=== PATIENT | female | born 1990 | race Caucasian/White ===

== ENCOUNTER 2021-10-11 10:07 | Inpatient (IN) | payer OTHER ==
[2021-10-11] MEDS ORDERED: Nalbuphine 10 MG/1 ML Vial IVPUSH PRN (11:14)
[2021-10-11] MEDS ORDERED: Water For Irrigation,Sterile 1,000 ML Container IRR PRN (11:14)
[2021-10-11] MEDS ORDERED: Sodium Chloride 0.9% 2.5 ML Syringe FLUSH PRN (11:14)
[2021-10-11] MEDS ORDERED: Butorphanol 1 MG/ML SDV IVPUSH PRN (11:14)
[2021-10-11] MEDS ORDERED: Carboprost Tromethamine 250 MCG/1 ML Amp IM PRN (11:14)
[2021-10-11] MEDS ORDERED: Tranexamic Acid 1,000 MG in Sodium Chloride 0.9% 100 ML IV PRN (11:14)
[2021-10-11] MEDS ORDERED: Misoprostol 200 MCG Tab PO PRN (11:14)
[2021-10-11] MEDS ORDERED: Methylergonovine 0.2 MG/1 ML Amp IM PRN (11:14)
[2021-10-11] MEDS ORDERED: Sodium Chloride 0.9% 10 ML Syringe FLUSH PRN (11:14)
[2021-10-11] MEDS ORDERED: Sodium Chloride 0.9% 20 ML SDV IV PRN (11:14)
[2021-10-11] MEDS ORDERED: Lidocaine 1% 50 ML MDV INJECT PRN (11:14)
[2021-10-11] MEDS ORDERED: Ondansetron 4 MG/2 ML SDV IVPUSH PRN (11:14)
[2021-10-11] MEDS ORDERED: Oxytocin/0.9 % Sodium Chloride 30 UNIT/500 ML BAG IV SCH ×2 (11:15→11:30)
[2021-10-11] MEDS ORDERED: Misoprostol 25 MCG (1/4 of 100 MCG) Tab VAG PRN (11:16)
[2021-10-11] MEDS ORDERED: Terbutaline 1 MG/ML SDV SUBCUT PRN (11:16)
[2021-10-11] MEDS: Lactated Ringers 1,000 ML IV SCH ×4 (12:00→22:05)
[2021-10-11] MEDS: Misoprostol 25 MCG (1/4 of 100 MCG) Tab VAG PRN ×2 (12:11→17:01)
--- NOTE | 2021-10-11 15:39 | PCM.PREANE ---
Preanesthetic Assessment - Procedure Proposed Procedure: Labor Epidural - Anesthesia/Transfusion/Family Hx Anesthesia History: Prior Anesthesia Without Reaction Family History of Anesthesia Reaction: No Transfusion History: No Prior Transfusion(s) - Review of Systems General: No Symptoms Pulmonary: No Symptoms, Other (Former Smoker. + Covid 19 diagnosis 10/08/21 with no symptoms) Cardiovascular: No Symptoms Gastrointestinal: Other (Morbid Obesity) Neurological: No Symptoms Other: Reports: Anxiety - Physical Assessment NPO Status Date: 10/11/21 NPO Status Time: 15:00 (Not NPO) Height: 1.55 m Weight: 124.194 kg ASA Class: 2 Mental Status: Alert & Oriented x3 Airway Class: Mallampati = 2 Dentition: Reports: Normal Dentition Thyro-Mental Finger Breadths: 3 Mouth Opening Finger Breadths: 3 ROM/Head Extension: Full Lungs: Clear to Auscultation, Normal Respiratory Effort Cardiovascular: Regular Rate, Regular Rhythm - Lab Values: Laboratory Last Values WBC 6.98 K/uL (4.0-11.0) 10/11/21 11:00 RBC 4.78 M/uL (4.30-5.90) 10/11/21 11:00 Hgb 14.6 g/dL (12.0-16.0) 10/11/21 11:00 Hct 42.2 % (36.0-46.0) 10/11/21 11:00 MCV 88.3 fL (80.0-98.0) 10/11/21 11:00 MCH 30.5 pg (27.0-32.0) 10/11/21 11:00 MCHC 34.6 g/dL (31.0-37.0) 10/11/21 11:00 RDW Std Deviation 46.5 fl (28.0-62.0) 10/11/21 11:00 RDW Coeff of Evelyn 14 % (11.0-15.0) 10/11/21 11:00 Plt Count 130 K/uL (150-400) L 10/11/21 11:00 MPV 11.00 fL (7.40-12.00) 10/11/21 11:00 Nucleated RBC % 0.0 /100WBC 10/11/21 11:00 Nucleated RBCs # 0 K/uL 10/11/21 11:00 Urine Color YELLOW 10/11/21 10:00 Urine Appearance CLEAR 10/11/21 10:00 Urine pH 6.5 (5.0-8.0) 10/11/21 10:00 Ur Specific Mode 1.020 (1.001-1.035) 10/11/21 10:00 Urine Protein TRACE mg/dL (NEGATIVE) H 10/11/21 10:00 Urine Glucose (UA) NEGATIVE mg/dL (NEGATIVE) 10/11/21 10:00 Urine Ketones NEGATIVE mg/dL (NEGATIVE) 10/11/21 10:00 Urine Occult Blood NEGATIVE (NEGATIVE) 10/11/21 10:00 Urine Nitrite NEGATIVE (NEGATIVE) 10/11/21 10:00 Urine Bilirubin NEGATIVE (NEGATIVE) 10/11/21 10:00 Urine Urobilinogen 1.0 EU/dL (<2.0) 10/11/21 10:00 Ur Leukocyte Esterase NEGATIVE (NEGATIVE) 10/11/21 10:00 Membrane Rupture POSITIVE 10/11/21 10:00 Blood Type A POSITIVE 10/11/21 11:00 Antibody Screen NEGATIVE 10/11/21 11:00 - Allergies Allergies/Adverse Reactions: Allergies Allergy/AdvReac Type Severity Reaction Status Date / Time Latex, Natural Rubber Allergy Hives Verified 10/11/21 10:15 - Blood Blood Available: Yes Product(s) Available: PRBC (Type and screen) - Anesthesia Plan Pre-Op Medication Ordered: None - Acknowledgements Anesthesia Type Planned: Epidural Pt an Appropriate Candidate for the Planned Anesthesia: Yes Alternatives and Risks of Anesthesia Discussed w Pt/Guardian: Yes Pt/Guardian Understands and Agrees with Anesthesia Plan: Yes PreAnesthesia Questionnaire [employer] History: Reports: Psychiatric History: Reports: Depression - CURRENT (IN HOUSE) MEDS Current Meds: Current Medications Butorphanol Tartrate (Butorphanol 1 Mg/Ml Sdv) 1 mg IVPUSH Q1H PRN PRN Reason: Pain (severe 7-10) Carboprost Tromethamine (Carboprost Tromethamine 250 Mcg/1 Ml Amp) 250 mcg IM ASDIRECTED PRN PRN Reason: Post Hemorrhage Lactated Ringer's (Ringers, Lactated) 1,000 mls @ 150 mls/hr IV ASDIRECTED RICARDO Last Admin: 10/11/21 12:00 Dose: 150 mls/hr Documented by: Oxytocin/Sodium Chloride (Oxytocin 30 Unit In Ns 0.9% 500 Ml Premix) 30 unit in 500 mls @ 500 mls/hr IV TITRATE RICARDO Tranexamic Acid 1,000 mg/ (Sodium Chloride) 110 mls @ 660 mls/hr IV ONETIME PRN PRN Reason: Bleeding Oxytocin/Sodium Chloride (Oxytocin 30 Unit In Ns 0.9% 500 Ml Premix) 30 unit in 500 mls @ 2 mls/hr IV TITRATE RICARDO; Protocol Lidocaine HCl (Lidocaine 1% 50 Ml Mdv) 50 ml INJECT ONETIME PRN PRN Reason: Laceration repair Methylergonovine Maleate (Methylergonovine 0.2 Mg/1 Ml Amp) 0.2 mg IM ASDIRECTED PRN PRN Reason: Post Hemorrhage Misoprostol (Misoprostol 200 Mcg Tab) 200 mcg PO ONETIME PRN PRN Reason: Post Hemorrhage Misoprostol (Misoprostol 25 Mcg (1/4 Of 100 Mcg) Tab) 25 mcg VAG ONETIME PRN PRN Reason: Cervical Ripening Misoprostol (Misoprostol 25 Mcg (1/4 Of 100 Mcg) Tab) 25 mcg VAG Q4H PRN PRN Reason: Cervical Ripening Last Admin: 10/11/21 12:11 Dose: 25 mcg Documented by: Nalbuphine HCl (Nalbuphine 10 Mg/1 Ml Vial) 10 mg IVPUSH Q1H PRN PRN Reason: Pain (severe 7-10) Ondansetron HCl (Ondansetron 4 Mg/2 Ml Sdv) 4 mg IVPUSH Q4H PRN PRN Reason: Nausea/Vomiting Sodium Chloride (Sodium Chloride 0.9% 10 Ml Syringe) 10 ml FLUSH ASDIRECTED PRN PRN Reason: Keep Vein Open Sodium Chloride (Sodium Chloride 0.9% 2.5 Ml Syringe) 2.5 ml FLUSH ASDIRECTED PRN PRN Reason: Keep Vein Open Sodium Chloride (Sodium Chloride 0.9% 20 Ml Sdv) 10 ml IV ASDIRECTED PRN PRN Reason: IV Use Sterile Water (Water For Irrigation,Sterile 1,000 Ml Container) 1,000 ml IRR ASDIRECTED PRN PRN Reason: delivery Terbutaline Sulfate (Terbutaline 1 Mg/Ml Sdv) 0.25 mg SUBCUT ASDIRECTED PRN PRN Reason: Tacysystole
[2021-10-11] MEDS ORDERED: Ropivacaine HCl/PF 100 ML ONE (21:04)
[2021-10-11] MEDS ORDERED: ePHEDrine 50 MG/ML SDV IVPUSH PRN (21:34)
--- NOTE | 2021-10-11 21:41 | PCM.SN.2 ---
- Pre-Procedure Checklist Attending Provider Aware: Yes Chart Reviewed: Yes Consent Signed: Yes Labs Reviewed: Yes VS/FHR Reviewed: Yes Patient Identification Confirmation Method: Reports: Chart Visual, Verbal Patient Pt an Appropriate Candidate for the Planned Anesthesia: Yes Alternatives and Risks of Anesthesia Discussed w Pt/Guardian: Yes - Procedure Procedure Start Date: 10/11/21 Procedure Start Time: 20:[address]: Reports: Blood Pressure, Heart Rate, SPO2 Functional IV: Yes Bolus Infused (fluid type and amount): 1000 ml LR Safety Measures: Reports: Patient Identified, Procedure Verified, Site Verified, Procedure Time Out Patient Position: Reports: Sitting Prep: Reports: Betadine x3 Local Anesthetic: Reports: Intradermal Wheal w Lidocaine 1% (3 ml) Regional Placement Level: Reports: L2-3, L3-4 Needle: Reports: 17 g Touhy Approach: Reports: Midline Technique: Reports: JAN Glass Syringe JAN Needle Depth (cm): 8 cm Parasthesia: Reports: None Fluid Obtained: Reports: Heme (First attempt at placing catheter, which was easily threaded with no resistance, resulted in blood backfilling the catheter and later aspirated into test dose syringe. Catheter removed (tip intact) & epidural attempted at L2/3 innerspace for easy placement of catheter & negetive Heme & test dose.) Catheter Depth at Skin (cm): 16 cm Test Dose Time: 20:21 Test Dose Medication: Reports: Lidocaine 1.5% w Epinephrine 1:200,000 (5 ml) Test Dose Response: Reports: Negative Loading Dose Time: 21:09 Loading Dose Medication: Ropivicaine 0.2% Loading Dose Patient Position: Sipine Continuous Infusion Start Time: 21:10 Continuous Infusion Medication: Ropivicaine 0.2% Continuous Infusion Rate: 16 Continuous Infusion PCS Bolus Option: 6 Continuous Infusion Lockout Dose (cc/hr): 15 (min lockout) Patient Position Post Placement: Reports: Supine Post-procedure Pain Level: 0 Level Achieved: T6. additional 6 ml bolus given Procedure End Date: 10/11/21 Procedure End Time: 21:37 Procedure Comment: pt checked with ice to have bilateral attenuation of sensation to T6. Sterile technique maintained throughout.
--- NOTE | 2021-10-11 21:44 | PCM.POSTAN ---
POST ANESTHESIA ASSESSMENT - MENTAL STATUS Mental Status: Alert, Oriented - RESPIRATORY Respiratory Status: Respiratory Rate WNL, Airway Patent, O2 Saturation Stable - CARDIOVASCULAR CV Status: Pulse Rate WNL, Blood Pressure Stable - GASTROINTESTINAL GI Status: No Symptoms - POST OP HYDRATION Hydration Status: Adequate & Stable
[2021-10-12] MEDS: Ropivacaine HCl/PF 200 MG in Premix Bag 1 BAG EPIDUR SCH ×3 (02:30→12:10)
[2021-10-12] MEDS: Lactated Ringers 1,000 ML IV SCH ×2 (04:23→10:09)
[2021-10-12] MEDS ORDERED: Ampicillin/Sulbactam Na 3 GM in Sodium Chloride 0.9% 100 ML IV ONE (10:23)
[2021-10-12] MEDS ORDERED: Acetaminophen 1,000 MG in Premix Bag 1 BAG IV ONE (13:08)
[2021-10-12] MEDS ORDERED: Ibuprofen 400 MG Tab PO PRN (16:01)
[2021-10-12] MEDS ORDERED: Bisacodyl 10 MG Supp RECTAL PRN (16:01)
[2021-10-12] MEDS ORDERED: oxyCODONE 5 MG Tab PO PRN (16:01)
--- NOTE | 2021-10-12 16:15 | PCM.OPNOTE ---
- General Post-Op/Procedure Note Date of Surgery/Procedure: 10/12/21 Operative Procedure(s): Vaccuum assisted vaginal delivery with 2nd MLL repaired Findings: Viable female APGARs 2 (1), 4(5), 5 (10), 6 (20), 7 (30). Weight 3010 gm. Spontaneous delivery intact placenta with 3V cord Pre Op Diagnosis: 37/5 week IUP. Abnormal heart tones. Prolonged ROM, suspect early chorioamnionitis. COVID positive. Obesity Post-Op Diagnosis: Same Anesthesia Technique: Epidural Primary Surgeon: Zulay Perez Pathology: placenta EBL in mLs: 350 Complications: none known Condition: Good Free Text/Narrative:: [id number] Intake & Output 10/12/21 10/12/21 10/12/21 06:59 14:59 22:59 Output Total 390 300 Balance -390 -300
[2021-10-12] MEDS ORDERED: Ampicillin/Sulbactam Na 1.5 GM in Sodium Chloride 0.9% 50 ML IV SCH (16:30)
[2021-10-12] MEDS: Benzocaine/Menthol 20%-0.5% Spray 78 GM Cannister TOP PRN (18:16)
[2021-10-12] MEDS: Witch Hazel Medicated Pads 40/Jar TOP PRN (18:17)
[2021-10-12] MEDS: Lanolin 100% Cream 7 GM Tube TOP PRN ×2 (18:17→22:35)
[2021-10-12] MEDS: Ibuprofen 800 MG Tab PO PRN (18:18)
[2021-10-12] MEDS: Acetaminophen 500 MG Tab PO PRN (22:34)
[2021-10-12] MEDS: Docusate Sodium 100 MG Cap PO PRN (22:35)
[2021-10-13] MEDS: Ibuprofen 800 MG Tab PO PRN ×3 (00:36→17:08)
[2021-10-13] MEDS: Ampicillin/Sulbactam Na 1.5 GM in Sodium Chloride 0.9% 50 ML IV SCH ×2 (00:37→06:35)
[2021-10-13] MEDS: Acetaminophen 500 MG Tab PO PRN ×3 (08:22→22:31)
--- NOTE | 2021-10-13 11:35 | PCM48HPAN ---
Post Anesthesia Note - EVALUATION WITHIN 48HRS OF ANESTHETIC Vital Signs in Normal Range: Yes Patient Participated in Evaluation: Yes Respiratory Function Stable: Yes Airway Patent: Yes Cardiovascular Function Stable: Yes Hydration Status Stable: Yes Pain Control Satisfactory: Yes Nausea and Vomiting Control Satisfactory: Yes Mental Status Recovered: Yes Vital Signs: Last Vital Signs Temp 36.3 C 10/13/21 08:00 Pulse 72 10/13/21 08:00 Resp 16 10/13/21 08:00 BP 117/52 L 10/13/21 08:00 Pulse Ox 98 10/13/21 08:00 - COMMENTS/OBSERVATIONS Free Text/Narrative:: Patient is up and walking with no complains of residual numbness or muscle weakness.
--- NOTE | 2021-10-13 16:13 | PCM.PNPP ---
- General Info Date of Service: 10/13/21 Subjective Update: Ambulating about room during rounds. Pain well controlled. Voiding independently. Lochia decreasing. Tolerating regular diet. Breastpumping for baby. - General Info Date of Service: 10/13/21 - Patient Data Vital Signs - Most Recent: Last Vital Signs Temp 97.3 F 10/13/21 08:00 Pulse 72 10/13/21 08:00 Resp 16 10/13/21 08:00 BP 117/52 L 10/13/21 08:00 Pulse Ox 98 10/13/21 08:00 Weight - Most Recent: 277 lb Lab Results - Last 24 Hours: Laboratory Results - last 24 hr 10/11/21 10/13/21 Range/Units 11:00 05:17 WBC 22.60 H (4.0-11.0) K/uL RBC 4.00 L (4.30-5.90) M/uL Hgb 12.2 (12.0-16.0) g/dL Hct 35.3 L (36.0-46.0) % MCV 88.3 (80.0-98.0) fL MCH 30.5 (27.0-32.0) pg MCHC 34.6 (31.0-37.0) g/dL RDW Std Deviation 46.2 (28.0-62.0) fl RDW Coeff of Evelyn 14 (11.0-15.0) % Plt Count 133 L (150-400) K/uL MPV 11.30 (7.40-12.00) fL Neut % (Auto) 82.8 H (48.0-80.0) % Lymph % (Auto) 10.0 L (16.0-40.0) % Dewitt % (Auto) 6.9 (0.0-15.0) % Eos % (Auto) 0.3 (0.0-7.0) % Baso % (Auto) 0.0 (0.0-1.5) % Neut # (Auto) 18.7 H (1.4-5.7) K/uL Lymph # (Auto) 2.3 (0.6-2.4) K/uL Dewitt # (Auto) 1.6 H (0.0-0.8) K/uL Eos # (Auto) 0.1 (0.0-0.7) K/uL Baso # (Auto) 0.0 (0.0-0.1) K/uL Nucleated RBC % 0.0 /100WBC Nucleated RBCs # 0 K/uL RPR Non-Reac (Non-Reac) Med Orders - Current: Current Medications Acetaminophen (Acetaminophen 500 Mg Tab) 500 mg PO Q4H PRN PRN Reason: Pain (mild 1-3) Last Admin: 10/13/21 08:22 Dose: 500 mg Documented by: Acetaminophen (Acetaminophen 500 Mg Tab) 1,000 mg PO Q4H PRN PRN Reason: Pain (mild 1-3) Last Admin: 10/12/21 22:34 Dose: 1,000 mg Documented by: Benzocaine/Menthol (Benzocaine/Menthol 20%-0.5% [place] 78 Gm Cannister) 78 gm TOP ASDIRECTED PRN PRN Reason: Perineal Comfort Measure Last Admin: 10/12/21 18:16 Dose: 1 can Documented by: Bisacodyl (Bisacodyl 10 Mg Supp) 10 mg RECTAL ONETIME PRN PRN Reason: Constipation Carboprost Tromethamine (Carboprost Tromethamine 250 Mcg/1 Ml Amp) 250 mcg IM ASDIRECTED PRN PRN Reason: Post Hemorrhage Docusate Sodium (Docusate Sodium 100 Mg Cap) 100 mg PO Q12H PRN PRN Reason: Constipation Last Admin: 10/12/21 22:35 Dose: 100 mg Documented by: Emollient Ointment (Lanolin 100% Cream 7 Gm Tube) 0 gm TOP ASDIRECTED PRN PRN Reason: Sore Nipples Last Admin: 10/12/21 22:35 Dose: 1 tube Documented by: Ephedrine Sulfate (Ephedrine 50 Mg/Ml Sdv) 10 mg IVPUSH Q1M PRN PRN Reason: Hypotension Lactated Ringer's (Ringers, Lactated) 1,000 mls @ 150 mls/hr IV ASDIRECTED RICARDO Last Admin: 10/12/21 10:09 Dose: 150 mls/hr Documented by: Oxytocin/Sodium Chloride (Oxytocin 30 Unit In Ns 0.9% 500 Ml Premix) 30 unit in 500 mls @ 500 mls/hr IV TITRATE RICARDO Tranexamic Acid 1,000 mg/ (Sodium Chloride) 110 mls @ 660 mls/hr IV ONETIME PRN PRN Reason: Bleeding Ropivacaine 200 mg/ Premix 100 mls @ 0 mls/hr EPIDUR ASDIRECTED RICARDO Last Admin: 10/12/21 12:10 Dose: 16 mls/hr Documented by: Ibuprofen (Ibuprofen 400 Mg Tab) 400 mg PO Q4H PRN PRN Reason: Pain (mild 1-3) Ibuprofen (Ibuprofen 800 Mg Tab) 800 mg PO Q6H PRN PRN Reason: Cramping Last Admin: 10/13/21 08:23 Dose: 800 mg Documented by: Methylergonovine Maleate (Methylergonovine 0.2 Mg/1 Ml Amp) 0.2 mg IM ASDIRECTED PRN PRN Reason: Post Hemorrhage Miscellaneous Medication (Phenylephrine Hcl In 0.9% Nacl 1 Mg/10 Ml Syringe) 0.1 mg IVPUSH Q1M PRN PRN Reason: Hypotension Misoprostol (Misoprostol 200 Mcg Tab) 200 mcg PO ONETIME PRN PRN Reason: Post Hemorrhage Nalbuphine HCl (Nalbuphine 10 Mg/1 Ml Vial) 10 mg IVPUSH Q1H PRN PRN Reason: Pain (severe 7-10) Ondansetron HCl (Ondansetron 4 Mg/2 Ml Sdv) 4 mg IVPUSH Q4H PRN PRN Reason: Nausea/Vomiting Last Admin: 10/11/21 19:55 Dose: 4 mg Documented by: Oxycodone HCl (Oxycodone 5 Mg Tab) 5 mg PO Q2H PRN PRN Reason: Pain (severe 7-10) Sodium Chloride (Sodium Chloride 0.9% 10 Ml Syringe) 10 ml FLUSH ASDIRECTED PRN PRN Reason: Keep Vein Open Sodium Chloride (Sodium Chloride 0.9% 2.5 Ml Syringe) 2.5 ml FLUSH ASDIRECTED PRN PRN Reason: Keep Vein Open Sodium Chloride (Sodium Chloride 0.9% 20 Ml Sdv) 10 ml IV ASDIRECTED PRN PRN Reason: IV Use Sterile Water (Water For Irrigation,Sterile 1,000 Ml Container) 1,000 ml IRR ASDIRECTED PRN PRN Reason: delivery Witch Shanta (Witch Sahnta Medicated Pads 40/Jar) 1 pad TOP ASDIRECTED PRN PRN Reason: comfort care Last Admin: 10/12/21 18:17 Dose: 1 tub Documented by: Discontinued Medications Butorphanol Tartrate (Butorphanol 1 Mg/Ml Sdv) 1 mg IVPUSH Q1H PRN PRN Reason: Pain (severe 7-10) Oxytocin/Sodium Chloride (Oxytocin 30 Unit In Ns 0.9% 500 Ml Premix) 30 unit in 500 mls @ 2 mls/hr IV TITRATE RICARDO; Protocol Last Titration: 10/12/21 13:00 Dose: 12 munits/min, 12 mls/hr Documented by: Ropivacaine (Naropin 0.2%) Confirm Administered Dose 100 mls @ as directed .ROUTE .STK-MED ONE Stop: 10/11/21 21:05 Last Admin: 10/12/21 02:50 Dose: Not Given Documented by: Ampicillin Sodium/Sulbactam (Sodium 3 gm/ Sodium Chloride) 100 mls @ 200 mls/hr IV ONETIME ONE Stop: 10/12/21 10:52 Last Admin: 10/12/21 10:48 Dose: 200 mls/hr Documented by: Ampicillin Sodium/Sulbactam (Sodium 1.5 gm/ Sodium Chloride) 50 mls @ 150 mls/hr IV Q6H [facility] Stop: 10/13/21 04:49 Last Admin: 10/12/21 18:36 Dose: 150 mls/hr Documented by: Acetaminophen 1,000 mg/ Premix 100 mls @ 400 mls/hr IV NOW ONE Stop: 10/12/21 13:22 Last Admin: 10/12/21 13:37 Dose: 400 mls/hr Documented by: Ampicillin Sodium/Sulbactam (Sodium 1.5 gm/ Sodium Chloride) 50 mls @ 150 mls/hr IV Q6H [facility] Stop: 10/13/21 06:49 Last Admin: 10/13/21 06:35 Dose: 150 mls/hr Documented by: Lidocaine HCl (Lidocaine 1% 50 Ml Mdv) 50 ml INJECT ONETIME PRN PRN Reason: Laceration repair Misoprostol (Misoprostol 25 Mcg (1/4 Of 100 Mcg) Tab) 25 mcg VAG ONETIME PRN PRN Reason: Cervical Ripening Misoprostol (Misoprostol 25 Mcg (1/4 Of 100 Mcg) Tab) 25 mcg VAG Q4H PRN PRN Reason: Cervical Ripening Last Admin: 10/11/21 17:01 Dose: 25 mcg Documented by: Terbutaline Sulfate (Terbutaline 1 Mg/Ml Sdv) 0.25 mg SUBCUT ASDIRECTED PRN PRN Reason: Tacysystole - Interaction Infant Disposition, : in Room with Family Infant Interaction: Unable to Hold Infant at this Time Feeding: Breastfed ; Nursed Well Support Person: Significant Other - Recovery Exam Fundal Tone: Firm Fundal Level: 1 Fingerbreadths Above Umbilicus Fundal Placement: Midline Lochia Amount: Scant, Small Lochia Color: Rubra/Red Perineum Description: Other (see below) Other Perinuem Description: laceration repaired Episiotomy/Laceration: Approximated Bladder Status: Voiding Urinary Elimination: Voided - Exam General: Alert Lungs: Normal Respiratory Effort Cardiovascular: Regular Rate GI/Abdominal Exam: Soft, Non-Tender Extremities: Normal Inspection, Normal Range of Motion, Non-Tender Skin: Warm, Dry, Intact Neurological: No New Focal Deficit Psy/Mental Status: Normal Mood - Problem List Review Problem List Initiated/Reviewed/Updated: Yes - Assessment Assessment:: 31 year old PPD1 s/p vacuum assisted vaginal delivery - Plan Plan:: cares * PO pain medication ordered PRN * Regular diet as tolerated * Encourage ambulation and fluid intake * Breast feeding/pumping, nursing assistance as needed * D/c antibiotics 24hrs post delivery. Initiated due to suspected early chorioamnionitis during labor. * COVID-19 positive, continue droplet precautions Dispo: stable. Anticipate discharge PPD2-3 pending maternal/ status. Continue cares today.
[2021-10-13] MEDS: Docusate Sodium 100 MG Cap PO PRN (22:31)
[2021-10-14] MEDS: Ibuprofen 800 MG Tab PO PRN ×3 (04:34→20:37)
[2021-10-14] MEDS: Acetaminophen 500 MG Tab PO PRN ×3 (04:35→20:38)
--- NOTE | 2021-10-14 07:06 | OR ---
SURGEON: Zulay Perez M.D. DATE OF PROCEDURE: 10/12/2021 PREOPERATIVE DIAGNOSES: 1. 37 and 4 weeks' intrauterine . 2. Abnormal heart tones. 3. Prolonged rupture of membranes with suspected early chorioamnionitis. 4. Coronavirus disease 2019 positive. 5. Morbid obesity. POSTOPERATIVE DIAGNOSES: 1. 37 and 4 weeks' intrauterine . 2. Abnormal heart tones. 3. Prolonged rupture of membranes with suspected early chorioamnionitis. 4. Coronavirus disease 2019 positive. 5. Morbid obesity. PROCEDURES: Vacuum-assisted vaginal delivery, second-degree midline laceration repaired. ANESTHESIA: Epidural. ESTIMATED BLOOD LOSS: 350 mL. COMPLICATIONS: None known. FINDINGS: Viable female, score 2 at one minute, 4 at five minutes, 5 at ten minutes, and 7 at 3 minutes. Spontaneous delivery, intact placenta, 3-vessel cord, appears to be bilobed, will be sent to Pathology for further analysis. Weight of 3010 g per . DISPOSITION: The patient to PACU. Infant in nursery. PROCEDURE DETAILS: Salma is a 31-year-old G1, P0, at 37 and 4 weeks' gestational age when she presented on the morning of 10/11/2021 with a leakage of fluid since shortly before 8 a.m. Clear fluid was noted. She is group B strep negative. Therefore, she was admitted. Routine labs were drawn. IV hydration was then initiated. She is known COVID positive. She received monoclonal antibodies on 10/09/2021. The patient was not found to be in active labor, and cervix was found to be closed and thick. Therefore, she was initiated on Cytotec ripening, received 2 doses of Cytotec. At that juncture, she was found to be 1 cm, 40% effaced, -3 station, was transitioned to Pitocin. Responded to this. She made slow cervical change through the evening hours and tripe scraper hours. The following morning, she was found to be 4 cm, 90% effaced, -2 station. Given that she was more than 24 hours, rupture of membranes initiated. Unasyn prophylactically for chorioamnionitis. The patient began to progress more rapidly thereafter. Shortly after 10 a.m., she was found to be 6, 90% effaced, -2 station. IUPC was placed as she was comfortable with an epidural. heart tones at this time remained in the 130s to 140s with variability. The patient continued to progress, and shortly before 1 p.m., she was found to be complete, 100% effaced, and -1 station. She felt the urge to push with pushing efforts, so the heart tones became 160s with variable deceleration. At that juncture, asked that she be repositioned and not to push while at this interval since the head was still so high. She was actually able to labor to a +2 station and then began pushing efforts. At that point, she pushed more readily. tachycardia was present in the 160s to 170s. With pushing efforts, less variability was noted. However, she was able to push to a +3 station. At this point, there were deep variable decelerations noted at present for delivery. Upon my arrival, placed the patient in a modified dorsal position, was prepped and draped in usual aseptic manner, was able to palpate station which was +3. The Danielle catheter had been removed and bladder was drained. The position was felt to be KERLINE with sagittal suture palpated. Estimated weight is approximately 7 pounds. At this juncture, given the persistent tachycardia and now deeper variable decelerations, advised the patient to proceed with operative vaginal delivery. Risks of vacuum-assisted vaginal delivery discussed with her including increased risk for maternal vaginal vulvar trauma, external cephalohematoma, and intracranial bleeding. She voiced her understanding. She agreed to proceed with a vacuum-assisted vaginal delivery. Once again, we were able to palpate sutures and placed vacuum gently. With the next contraction, was able to insufflate the vacuum to the green zone, and with this next set of contractions, was able to deliver 's head atraumatically spontaneously. The vacuum was removed. Anterior shoulder, posterior shoulder, main body were delivered. Nuchal cord x1 was reduced manually. Infant was handed off immediately to attending nursery staff and bee worker present. The cord had been clamped and cut. Cord arterial, cord venous, cord blood sampling were obtained. Light pressure was applied while the placenta was delivered spontaneously intact. Vigorous fundal uterine massage was then applied while 30 units of Pitocin was delivered in 500 mL of IV fluid. Upon inspection of cervix, vaginal sidewall, and perineum, there was found to be a second-degree midline laceration. This was repaired using 3-0 Vicryl in the usual fashion. There were also first-degree periurethral lacerations present. These were repaired with [id number] sutures using 3-0 Vicryl. Hemostasis thereafter evident. The uterus does remain firm. Hemostasis was present. The placenta appeared to be bilobed, will be sent to Pathology for further analysis, especially given suspected early chorioamnionitis. The patient had received one dose of Unasyn by the time of delivery. The patient will remain in isolation in LDRP given COVID positive status. is with her at this time. At time of this disposition, the infant is on room air, saturating in the high 90s with a pulse in the 160s. Sponge, instrument, needle counts were correct. NOVA / NATTY /[id number]
--- NOTE | 2021-10-14 09:06 | PCM.PNPP ---
- General Info Date of Service: 10/14/21 Subjective Update: Resting comfortably in bed during rounds. Pain well controlled. Ambulating and voiding independently. Lochia decreasing. Tolerating regular diet. Reports a rough night for and requesting to resume Zoloft due to increased anxiety. Denies SI/HI. Breastpumping for baby. - General Info Date of Service: 10/14/21 - Patient Data Vital Signs - Most Recent: Last Vital Signs Temp 98.1 F 10/13/21 20:32 Pulse 60 10/14/21 04:36 Resp 18 10/14/21 04:36 BP 110/47 L 10/14/21 04:36 Pulse Ox 96 10/14/21 04:36 Weight - Most Recent: 277 lb Lab Results - Last 24 Hours: Laboratory Results - last 24 hr 10/11/21 Range/Units 11:00 RPR Non-Reac (Non-Reac) Med Orders - Current: Current Medications Acetaminophen (Acetaminophen 500 Mg Tab) 500 mg PO Q4H PRN PRN Reason: Pain (mild 1-3) Last Admin: 10/13/21 17:07 Dose: 500 mg Documented by: Acetaminophen (Acetaminophen 500 Mg Tab) 1,000 mg PO Q4H PRN PRN Reason: Pain (mild 1-3) Last Admin: 10/14/21 04:35 Dose: 1,000 mg Documented by: Benzocaine/Menthol (Benzocaine/Menthol 20%-0.5% [place] 78 Gm Cannister) 78 gm TOP ASDIRECTED PRN PRN Reason: Perineal Comfort Measure Last Admin: 10/12/21 18:16 Dose: 1 can Documented by: Bisacodyl (Bisacodyl 10 Mg Supp) 10 mg RECTAL ONETIME PRN PRN Reason: Constipation Carboprost Tromethamine (Carboprost Tromethamine 250 Mcg/1 Ml Amp) 250 mcg IM ASDIRECTED PRN PRN Reason: Post Hemorrhage Docusate Sodium (Docusate Sodium 100 Mg Cap) 100 mg PO Q12H PRN PRN Reason: Constipation Last Admin: 10/13/21 22:31 Dose: 100 mg Documented by: Emollient Ointment (Lanolin 100% Cream 7 Gm Tube) 0 gm TOP ASDIRECTED PRN PRN Reason: Sore Nipples Last Admin: 10/12/21 22:35 Dose: 1 tube Documented by: Ephedrine Sulfate (Ephedrine 50 Mg/Ml Sdv) 10 mg IVPUSH Q1M PRN PRN Reason: Hypotension Lactated Ringer's (Ringers, Lactated) 1,000 mls @ 150 mls/hr IV ASDIRECTED [facility] [place] Last Admin: 10/12/21 10:09 Dose: 150 mls/hr Documented by: Oxytocin/Sodium Chloride (Oxytocin 30 Unit In Ns 0.9% 500 Ml Premix) 30 unit in 500 mls @ 500 mls/hr IV TITRATE [facility] [place] Tranexamic Acid 1,000 mg/ (Sodium Chloride) 110 mls @ 660 mls/hr IV ONETIME PRN PRN Reason: Bleeding Ropivacaine 200 mg/ Premix 100 mls @ 0 mls/hr EPIDUR ASDIRECTED [facility] [place] Last Admin: 10/12/21 12:10 Dose: 16 mls/hr Documented by: Ibuprofen (Ibuprofen 400 Mg Tab) 400 mg PO Q4H PRN PRN Reason: Pain (mild 1-3) Ibuprofen (Ibuprofen 800 Mg Tab) 800 mg PO Q6H PRN PRN Reason: Cramping Last Admin: 10/14/21 04:34 Dose: 800 mg Documented by: Methylergonovine Maleate (Methylergonovine 0.2 Mg/1 Ml Amp) 0.2 mg IM ASDIRECTED PRN PRN Reason: Post Hemorrhage Miscellaneous Medication (Phenylephrine Hcl In 0.9% Nacl 1 Mg/10 Ml Syringe) 0.1 mg IVPUSH Q1M PRN PRN Reason: Hypotension Misoprostol (Misoprostol 200 Mcg Tab) 200 mcg PO ONETIME PRN PRN Reason: Post Hemorrhage Nalbuphine HCl (Nalbuphine 10 Mg/1 Ml Vial) 10 mg IVPUSH Q1H PRN PRN Reason: Pain (severe 7-10) Ondansetron HCl (Ondansetron 4 Mg/2 Ml Sdv) 4 mg IVPUSH Q4H PRN PRN Reason: Nausea/Vomiting Last Admin: 10/11/21 19:55 Dose: 4 mg Documented by: Oxycodone HCl (Oxycodone 5 Mg Tab) 5 mg PO Q2H PRN PRN Reason: Pain (severe 7-10) Sodium Chloride (Sodium Chloride 0.9% 10 Ml Syringe) 10 ml FLUSH ASDIRECTED PRN PRN Reason: Keep Vein Open Sodium Chloride (Sodium Chloride 0.9% 2.5 Ml Syringe) 2.5 ml FLUSH ASDIRECTED PRN PRN Reason: Keep Vein Open Sodium Chloride (Sodium Chloride 0.9% 20 Ml Sdv) 10 ml IV ASDIRECTED PRN PRN Reason: IV Use Sterile Water (Water For Irrigation,Sterile 1,000 Ml Container) 1,000 ml IRR ASDIRECTED PRN PRN Reason: delivery Witch Shanta (Witch Shanta Medicated Pads 40/Jar) 1 pad TOP ASDIRECTED PRN PRN Reason: comfort care Last Admin: 10/12/21 18:17 Dose: 1 tub Documented by: Discontinued Medications Butorphanol Tartrate (Butorphanol 1 Mg/Ml Sdv) 1 mg IVPUSH Q1H PRN PRN Reason: Pain (severe 7-10) Oxytocin/Sodium Chloride (Oxytocin 30 Unit In Ns 0.9% 500 Ml Premix) 30 unit in 500 mls @ 2 mls/hr IV TITRATE [facility]; Protocol Last Titration: 10/12/21 13:00 Dose: 12 munits/min, 12 mls/hr Documented by: Ropivacaine (Naropin 0.2%) Confirm Administered Dose 100 mls @ as directed .ROUTE .STK-MED ONE Stop: 10/11/21 21:05 Last Admin: 10/12/21 02:50 Dose: Not Given Documented by: Ampicillin Sodium/Sulbactam (Sodium 3 gm/ Sodium Chloride) 100 mls @ 200 mls/hr IV ONETIME ONE Stop: 10/12/21 10:52 Last Admin: 10/12/21 10:48 Dose: 200 mls/hr Documented by: Ampicillin Sodium/Sulbactam (Sodium 1.5 gm/ Sodium Chloride) 50 mls @ 150 mls/hr IV Q6H [facility] Stop: 10/13/21 04:49 Last Admin: 10/12/21 18:36 Dose: 150 mls/hr Documented by: Acetaminophen 1,000 mg/ Premix 100 mls @ 400 mls/hr IV NOW ONE Stop: 10/12/21 13:22 Last Admin: 10/12/21 13:37 Dose: 400 mls/hr Documented by: Ampicillin Sodium/Sulbactam (Sodium 1.5 gm/ Sodium Chloride) 50 mls @ 150 mls/hr IV Q6H [facility] Stop: 10/13/21 06:49 Last Admin: 10/13/21 06:35 Dose: 150 mls/hr Documented by: Lidocaine HCl (Lidocaine 1% 50 Ml Mdv) 50 ml INJECT ONETIME PRN PRN Reason: Laceration repair Misoprostol (Misoprostol 25 Mcg (1/4 Of 100 Mcg) Tab) 25 mcg VAG ONETIME PRN PRN Reason: Cervical Ripening Misoprostol (Misoprostol 25 Mcg (1/4 Of 100 Mcg) Tab) 25 mcg VAG Q4H PRN PRN Reason: Cervical Ripening Last Admin: 10/11/21 17:01 Dose: 25 mcg Documented by: Terbutaline Sulfate (Terbutaline 1 Mg/Ml Sdv) 0.25 mg SUBCUT ASDIRECTED PRN PRN Reason: Tacysystole - Interaction Infant Disposition, : in Room with Family Interaction: Unable to Hold Infant at this Time Feeding: Breastfed ; Nursed Well Support Person: Significant Other - Recovery Exam Fundal Tone: Firm Fundal Level: 1 Fingerbreadths Below Umbilicus Fundal Placement: Midline Lochia Amount: Scant Lochia Color: Rubra/Red Perineum Description: Other (see below) Other Perinuem Description: 1st degree laceration repaired Episiotomy/Laceration: Approximated Bladder Status: Voiding Urinary Elimination: Voided - Exam General: Alert Lungs: Normal Respiratory Effort Cardiovascular: Regular Rate GI/Abdominal Exam: Soft, Non-Tender Extremities: Normal Range of Motion, Non-Tender, No Pedal Edema Skin: Warm, Dry, Intact Neurological: No New Focal Deficit Psy/Mental Status: Normal Affect - Problem List Review Problem List Initiated/Reviewed/Updated: Yes - Assessment Assessment:: 31 year old PPD2 s/p vacuum assisted vaginal delivery - Plan Plan:: cares * PO pain medication ordered PRN * Regular diet as tolerated * Encourage ambulation and fluid intake * Breast feeding/pumping, nursing assistance as needed * D/c antibiotics 24hrs post delivery. Initiated due to suspected early chorioamnionitis during labor. * COVID-19 positive, continue droplet precautions Anxiety * Continue home medication, Zoloft 50mg daily Dispo: stable. Anticipate discharge PPD3 pending maternal/ status. Continue cares today.
[2021-10-14] MEDS: Witch Hazel Medicated Pads 40/Jar TOP PRN (09:51)
[2021-10-14] MEDS: Sertraline 50 MG Tab PO SCH (09:51)
[2021-10-15] MEDS: Ibuprofen 800 MG Tab PO PRN ×2 (05:13→13:50)
[2021-10-15] MEDS: Acetaminophen 500 MG Tab PO PRN ×2 (05:14→13:51)
--- NOTE | 2021-10-15 08:32 | PCM.PNPP ---
- General Info Date of Service: 10/15/21 Subjective Update: Resting comfortably in bed during rounds, holding infant. Pain well controlled. Ambulating and voiding independently. Lochia decreasing. Tolerating regular diet. Zoloft resumed yesterday. Mood improved now that she is able to hold as desired. Denies SI/HI. Breastpumping for baby, reports low milk supply. - General Info Date of Service: 10/15/21 - Patient Data Vital Signs - Most Recent: Last Vital Signs Temp 97.0 F 10/15/21 07:40 Pulse 58 L 10/15/21 07:40 Resp 19 10/15/21 07:40 BP 135/64 10/15/21 07:40 Pulse Ox 99 10/15/21 07:40 Weight - Most Recent: 277 lb Med Orders - Current: Current Medications Acetaminophen (Acetaminophen 500 Mg Tab) 500 mg PO Q4H PRN PRN Reason: Pain (mild 1-3) Last Admin: 10/13/21 17:07 Dose: 500 mg Documented by: Acetaminophen (Acetaminophen 500 Mg Tab) 1,000 mg PO Q4H PRN PRN Reason: Pain (mild 1-3) Last Admin: 10/15/21 05:14 Dose: 1,000 mg Documented by: Benzocaine/Menthol (Benzocaine/Menthol 20%-0.5% [place] 78 Gm Cannister) 78 gm TOP ASDIRECTED PRN PRN Reason: Perineal Comfort Measure Last Admin: 10/12/21 18:16 Dose: 1 can Documented by: Bisacodyl (Bisacodyl 10 Mg Supp) 10 mg RECTAL ONETIME PRN PRN Reason: Constipation Carboprost Tromethamine (Carboprost Tromethamine 250 Mcg/1 Ml Amp) 250 mcg IM ASDIRECTED PRN PRN Reason: Post Hemorrhage Docusate Sodium (Docusate Sodium 100 Mg Cap) 100 mg PO Q12H PRN PRN Reason: Constipation Last Admin: 10/13/21 22:31 Dose: 100 mg Documented by: Emollient Ointment (Lanolin 100% Cream 7 Gm Tube) 0 gm TOP ASDIRECTED PRN PRN Reason: Sore Nipples Last Admin: 10/12/21 22:35 Dose: 1 tube Documented by: Ephedrine Sulfate (Ephedrine 50 Mg/Ml Sdv) 10 mg IVPUSH Q1M PRN PRN Reason: Hypotension Lactated Ringer's (Ringers, Lactated) 1,000 mls @ 150 mls/hr IV ASDIRECTED [facility] Last Admin: 10/12/21 10:09 Dose: 150 mls/hr Documented by: Oxytocin/Sodium Chloride (Oxytocin 30 Unit In Ns 0.9% 500 Ml Premix) 30 unit in 500 mls @ 500 mls/hr IV TITRATE [facility] Tranexamic Acid 1,000 mg/ (Sodium Chloride) 110 mls @ 660 mls/hr IV ONETIME PRN PRN Reason: Bleeding Ropivacaine 200 mg/ Premix 100 mls @ 0 mls/hr EPIDUR ASDIRECTED [facility] Last Admin: 10/12/21 12:10 Dose: 16 mls/hr Documented by: Ibuprofen (Ibuprofen 400 Mg Tab) 400 mg PO Q4H PRN PRN Reason: Pain (mild 1-3) Ibuprofen (Ibuprofen 800 Mg Tab) 800 mg PO Q6H PRN PRN Reason: Cramping Last Admin: 10/15/21 05:13 Dose: 800 mg Documented by: Methylergonovine Maleate (Methylergonovine 0.2 Mg/1 Ml Amp) 0.2 mg IM A SDIRECTED PRN PRN Reason: Post Hemorrhage Miscellaneous Medication (Phenylephrine Hcl In 0.9% Nacl 1 Mg/10 Ml Syringe) 0.1 mg IVPUSH Q1M PRN PRN Reason: Hypotension Misoprostol (Misoprostol 200 Mcg Tab) 200 mcg PO ONETIME PRN PRN Reason: Post Hemorrhage Nalbuphine HCl (Nalbuphine 10 Mg/1 Ml Vial) 10 mg IVPUSH Q1H PRN PRN Reason: Pain (severe 7-10) Ondansetron HCl (Ondansetron 4 Mg/2 Ml Sdv) 4 mg IVPUSH Q4H PRN PRN Reason: Nausea/Vomiting Last Admin: 10/11/21 19:55 Dose: 4 mg Documented by: Oxycodone HCl (Oxycodone 5 Mg Tab) 5 mg PO Q2H PRN PRN Reason: Pain (severe 7-10) Sertraline HCl (Sertraline 50 Mg Tab) 50 mg PO DAILY [facility] Last Admin: 10/14/21 09:51 Dose: 50 mg Documented by: Sodium Chloride (Sodium Chloride 0.9% 10 Ml Syringe) 10 ml FLUSH ASDIRECTED PRN PRN Reason: Keep Vein Open Sodium Chloride (Sodium Chloride 0.9% 2.5 Ml Syringe) 2.5 ml FLUSH ASDIRECTED PRN PRN Reason: Keep Vein Open Sodium Chloride (Sodium Chloride 0.9% 20 Ml Sdv) 10 ml IV ASDIRECTED PRN PRN Reason: IV Use Sterile Water (Water For Irrigation,Sterile 1,000 Ml Container) 1,000 ml IRR ASDIRECTED PRN PRN Reason: delivery Witch Shanta (Witch Shanta Medicated Pads 40/Jar) 1 pad TOP ASDIRECTED PRN PRN Reason: comfort care Last Admin: 10/14/21 09:51 Dose: 1 tub Documented by: Discontinued Medications Butorphanol Tartrate (Butorphanol 1 Mg/Ml Sdv) 1 mg IVPUSH Q1H PRN PRN Reason: Pain (severe 7-10) Oxytocin/Sodium Chloride (Oxytocin 30 Unit In Ns 0.9% 500 Ml Premix) 30 unit in 500 mls @ 2 mls/hr IV TITRATE [facility]; Protocol Last Titration: 10/12/21 13:00 Dose: 12 munits/min, 12 mls/hr Documented by: Ropivacaine (Naropin 0.2%) Confirm Administered Dose 100 mls @ as directed .ROUTE .STK-MED ONE Stop: 10/11/21 21:05 Last Admin: 10/12/21 02:50 Dose: Not Given Documented by: Ampicillin Sodium/Sulbactam (Sodium 3 gm/ Sodium Chloride) 100 mls @ 200 mls/hr IV ONETIME ONE Stop: 10/12/21 10:52 Last Admin: 10/12/21 10:48 Dose: 200 mls/hr Documented by: Ampicillin Sodium/Sulbactam (Sodium 1.5 gm/ Sodium Chloride) 50 mls @ 150 mls/hr IV Q6H [facility] Stop: 10/13/21 04:49 Last Admin: 10/12/21 18:36 Dose: 150 mls/hr Documented by: Acetaminophen 1,000 mg/ Premix 100 mls @ 400 mls/hr IV NOW ONE Stop: 10/12/21 13:22 Last Admin: 10/12/21 13:37 Dose: 400 mls/hr Documented by: Ampicillin Sodium/Sulbactam (Sodium 1.5 gm/ Sodium Chloride) 50 mls @ 150 mls/hr IV Q6H [facility] Stop: 10/13/21 06:49 Last Admin: 10/13/21 06:35 Dose: 150 mls/hr Documented by: Lidocaine HCl (Lidocaine 1% 50 Ml Mdv) 50 ml INJECT ONETIME PRN PRN Reason: Laceration repair Misoprostol (Misoprostol 25 Mcg (1/4 Of 100 Mcg) Tab) 25 mcg VAG ONETIME PRN PRN Reason: Cervical Ripening Misoprostol (Misoprostol 25 Mcg (1/4 Of 100 Mcg) Tab) 25 mcg VAG Q4H PRN PRN Reason: Cervical Ripening Last Admin: 10/11/21 17:01 Dose: 25 mcg Documented by: Terbutaline Sulfate (Terbutaline 1 Mg/Ml Sdv) 0.25 mg SUBCUT ASDIRECTED PRN PRN Reason: Tacysystole - Interaction Infant Disposition, : in Room with Family Interaction: Holding Infant Feeding: Breastfed Infant; Nursed Well Support Person: Significant Other - Recovery Exam Fundal Tone: Firm Fundal Level: At Umbilicus Fundal Placement: Midline Lochia Amount: Scant Lochia Color: Rubra/Red Perineum Description: Other (see below) Other Perinuem Description: 1st degree laceration. Episiotomy/Laceration: Approximated Bladder Status: Voiding Urinary Elimination: Voided - Exam General: Alert Lungs: Normal Respiratory Effort Cardiovascular: Regular Rate GI/Abdominal Exam: Soft, Non-Tender Extremities: Normal Range of Motion, Non-Tender, No Pedal Edema Skin: Warm, Dry, Intact Neurological: No New Focal Deficit Psy/Mental Status: Normal Mood - Problem List Review Problem List Initiated/Reviewed/Updated: Yes - My Orders Last 24 Hours: My Active Orders 10/14/21 09:30 Sertraline [Zoloft] 50 mg PO DAILY - Assessment Assessment:: 31 year old PPD3 s/p vacuum assisted vaginal delivery - Plan Plan:: cares * PO pain medication ordered PRN * Regular diet as tolerated * Encourage ambulation and fluid intake * Breast feeding/pumping, nursing assistance as needed * D/c antibiotics 24hrs post delivery. Initiated due to suspected early chorioamnionitis during labor. * COVID-19 positive, continue droplet precautions Anxiety * Continue home medication, Zoloft 50mg daily Dispo: stable. Anticipate discharge today pending maternal/ status. Discharge instructions reviewed. Patient to follow up at [facility] in 4 weeks. Strict precautions for when to return for worsening COVID-19 symptoms. Questions elicited and answered.
[2021-10-15] MEDS: Sertraline 50 MG Tab PO SCH (08:48)
[2021-10-15] MEDS: Benzocaine/Menthol 20%-0.5% Spray 78 GM Cannister TOP PRN (18:52)
[2021-10-15] MEDS: Witch Hazel Medicated Pads 40/Jar TOP PRN (18:52)
== END 2021-10-15 19:40 | disposition home or self-care (01) | DRG 805 ==
LOC: MW.OBCHECK 10:07 → MW.OB 11:00 → UNDODISOB 15:45 → OBSVTOIN 10-12 16:01 → MW.OB 10-12 20:15
PROVIDERS: ADMIT Obstetrics & Gynecology; ATTEND Obstetrics & Gynecology
PROC: 10D07Z6 Extraction of Products of Conception, Vacuum, Via Natural or Artificial Opening (ICD-10-PCS; principal; 2021-10-12)
PROC: 0KQM0ZZ Repair Perineum Muscle, Open Approach (ICD-10-PCS; 2021-10-12)
PROC: 10H07YZ Insertion of Other Device into Products of Conception, Via Natural or Artificial Opening (ICD-10-PCS; 2021-10-12)
DX: O42.12 Full-term premature rupture of membranes, onset of labor more than 24 hours following rupture (principal); U07.1 COVID-19; Z37.0 Single live birth; O41.1230 Chorioamnionitis, third trimester, not applicable or unspecified; O98.52 Other viral diseases complicating childbirth; O99.214 Obesity complicating childbirth; O70.1 Second degree perineal laceration during delivery; Z3A.37 37 weeks gestation of pregnancy
CPT/HCPCS: 01967; 36415; 51702; 59025; 59409; 81003; 82803; 84112; 85025; 85027; 86592; 86850; 86900; 86901; A9270-GY; J0131; J0295; J2405; J2590; J2795; J7120

== ENCOUNTER 2023-12-07 12:30 | Emergency (ER) | payer OTHER ==
[2023-12-07 13:58] LABS: BASOPHILS ABSOLUTE AUTO 0.02 K/uL (0.00-0.20); BASOPHILS PERCENT AUTO 0.2 % (0.0-1.0); EOSINOPHILS ABSOLUTE AUTO 0.01 K/uL (0.00-0.45); EOSINOPHILS PERCENT AUTO 0.1 % (0.0-6.0); HEMATOCRIT 41.2 % (37.0-47.0); HEMOGLOBIN 14.4 g/dL (12.0-16.0); IMMATURE GRAN ABSOLUTE AUTO 0.02 K/uL (0.00-0.05); IMMATURE GRAN PERCENT AUTO 0.2 % (0.0-0.4); LYMPHOCYTES ABSOLUTE AUTO 1.59 K/uL (1.00-4.80); LYMPHOCYTES PERCENT AUTO 18.4 % (24.0-44.0); MEAN CORPUSCULAR HEMOGLOBIN 30.8 pg (28.0-32.0); MEAN PLATELET VOLUME 10.6 fL (9.4-12.3); MONOCYTES ABSOLUTE AUTO 0.62 K/uL (0.00-0.80); MONOCYTES PERCENT AUTO 7.2 % (0.0-8.0); NEUTROPHILS ABSOLUTE AUTO 6.38 K/uL (1.80-7.70); NEUTROPHILS PERCENT AUTO 73.9 % (41.0-71.0); PLATELET COUNT,PLT 176 K/uL (150-400); RED BLOOD CELL COUNT 4.68 M/uL (4.10-5.30); WHITE BLOOD CELL COUNT,WBC 8.64 K/uL (3.9-11.3)
[2023-12-07] MEDS: Sodium Chloride 0.9% 1,000 ML IV ONE (13:58)
[2023-12-07] MEDS: Ketorolac 30 MG/ML SDV IVPUSH ONE (13:59)
[2023-12-07] MEDS: Acetaminophen/HYDROcodone 325-5 MG Tab PO ONE (13:59)
[2023-12-07 14:26] LABS: A/G RATIO 0.9 (0.9-1.6); ALBUMIN 3.4 g/dL (3.4-5.0); BILIRUBIN TOTAL 0.4 mg/dL (0.2-1.0); CALCIUM 8.3 mg/dL (8.5-10.1); CREATININE 0.9 mg/dL (0.6-1.0); EST CRCL DRUG DOSING (CG) 67.72 mL/min; POTASSIUM,K 3.2 mmol/L (3.5-5.1); PROTEIN TOTAL,TP 7.2 g/dL (6.4-8.2)
[2023-12-07 14:35] LABS: CORONAVIRUS COVID-19 NAA NEGATIVE (NEGATIVE); INFLUENZA A NAA NEGATIVE (NEGATIVE); INFLUENZA B NAA POSITIVE (NEGATIVE)
== END 2023-12-07 15:19 | disposition home or self-care (01) ==
LOC: MW.ED 12:30
DX: J10.1 Influenza due to other identified influenza virus with other respiratory manifestations (principal); Z91.040 Latex allergy status
CPT/HCPCS: 0240U; 36415; 71045; 80053; 84703; 85025; 96361; 96374; 99285; J1885; J7030; 99284